=== PATIENT | female | born 1985 | race Caucasian/White ===

== ENCOUNTER 2017-05-24 17:22 | Emergency (ER) | payer MEDICAID, OTHER ==
[~2017-05-24] VITALS: Ht 170.2 cm; Wt 108.0 kg
[2017-05-24 21:45] VITALS: BP 146/83
[2017-05-24] MEDS ORDERED: BACLOFEN 10 MG TAB PO ONE (21:45)
[2017-05-24] MEDS ORDERED: IBUPROFEN 600 MG TAB PO ONE (21:45)
== END 2017-05-24 21:48 | disposition home or self-care (01) ==
LOC: ER 17:34
DX: S40.012A Contusion of left shoulder, initial encounter (principal); S00.03XA Contusion of scalp, initial encounter; S50.12XA Contusion of left forearm, initial encounter; Z88.8 Allergy status to other drugs, medicaments and biological substances; V49.49XA Driver injured in collision with other motor vehicles in traffic accident, initial encounter; Y93.89 Activity, other specified; Y99.8 Other external cause status; Y92.410 Unspecified street and highway as the place of occurrence of the external cause
CPT/HCPCS: 70450; 73030; 73060; 73090